=== PATIENT | female | born 1975 | race Caucasian/White ===

== ENCOUNTER 2018-07-14 12:18 | Outpatient (CLI) | payer OTHER ==
[2018-07-14] MEDS ORDERED: LIDOCAINE 1%, 20ML ONE (13:50)
[2018-07-14] MEDS ORDERED: LIDOCAINE-MPF 1%, 5ML ONE (13:51)
== END 2018-07-14 23:59 | disposition home or self-care (01) ==
LOC: RAD 12:18
PROVIDERS: ATTEND Nurse Practitioner Family
DX: E04.1 Nontoxic single thyroid nodule (principal)
CPT/HCPCS: 10005; 88172; 88173; J3490; 76942

== ENCOUNTER 2018-08-20 13:32 | Outpatient (CLI) | payer OTHER | END 2018-08-20 23:59 | disposition home or self-care (01) | LOC: CFH 13:32 | PROVIDERS: ATTEND Internal Medicine Cardiovascular Disease | DX: I10 Essential (primary) hypertension (principal); I25.2 Old myocardial infarction | CPT/HCPCS: 93306 ==